=== PATIENT | female | born 1990 | race African-American/Black ===

== ENCOUNTER 2018-01-24 03:02 | Inpatient (IN) | payer MEDICAID ==
[2018-01-24] MEDS ORDERED: DLR(*) 1000 ML BAG 1,000 ML IV PRN (03:04)
[2018-01-24] MEDS ORDERED: LR(*) 1000 ML BAG 1,000 ML IV PRN (03:04)
[2018-01-24] MEDS ORDERED: FAMOTIDINE(*) 20MG/50ML PREMIX 50 ML IVPB PRN (03:04)
[2018-01-24] MEDS ORDERED: OXYTOCIN 30 UNIT/D5LR 500 ML 500 ML IV PRN (03:04)
[2018-01-24] MEDS ORDERED: LIDOCAINE 1% LOCAL 300 MG/30ML INJ PRN (03:05)
[2018-01-24] MEDS ORDERED: fentaNYL CITR 100 MCG/2 ML AMP IVP PRN (03:05)
[2018-01-24] MEDS ORDERED: METOCLOPRAMIDE 10 MG/2 ML SDV IVP PRN (03:05)
[2018-01-24] MEDS ORDERED: cefOXitin/DEX(*) 2GM/50ML PREM 50 ML IVPB PRN (03:05)
[2018-01-24 04:20] LABS: PLATELET COUNT, AUTOMATED 201 K/uL (150-450)
[2018-01-24] MEDS ORDERED: LIDOCAINE 1% LOCAL 300 MG/30ML INJ ONE (08:15)
[2018-01-24] MEDS ORDERED: cefOXitin/DEX(*) 2GM/50ML PREM 50 ML IVPB ONE (08:15)
[2018-01-24] MEDS ORDERED: BUPIV/EPI 0.25% 1:200,000 50ML INFIL ONE (08:20)
[2018-01-24] MEDS ORDERED: HYDROCORTISONE 2.5% CR 30GM TB PR PRN (09:05)
[2018-01-24] MEDS ORDERED: BENZOCAINE 20% 60 ML BTL TP PRN (09:05)
[2018-01-24] MEDS ORDERED: MAGNESIUM HYDROXIDE* 30ML UDCP PO PRN (09:05)
[2018-01-24] MEDS ORDERED: GLYCERIN/WITCH HAZEL LEAF 1 PK TOP PRN (09:05)
[2018-01-24] MEDS ORDERED: LANOLIN OINT 7 GM TUBE TP PRN (09:05)
[2018-01-24] MEDS ORDERED: ACETAMINOPHEN 325 MG TAB PO PRN (09:05)
[2018-01-24] MEDS ORDERED: INFLUENZA VIRUS VAC 0.5 ML SYR IM ONLY ONE (09:05)
[2018-01-24] MEDS ORDERED: HYDROmorphone HCL 2 MG TAB PO PRN (09:05)
--- NOTE | 2018-01-24 09:08 | History & Physical ---
History of Present Illness Age of Patient: 27 : 1 Para or TPAL: 0 EDC per LMP: Jan 18, 2018 Estimated Gestational Age: 40.6 Chief Complaint contractions History of Present Illness The patient is a 27 year old 1 para 0 admitted at 40 6/7 weeks estimated gestational age with an estimated date of delivery01/18/18 . Patient is admitted with complaint of contractions . No vaginal bleeding. Good movement and regular contractions. She was evaluated for active labor. She had an uncomplicated course. Her record was reviewed. History Allergies: Coded Allergies: No Known Drug Allergies (Unverified , 01/24/18) Exam General Exam Cardiovascular: Regular Rate and Rhythm Respiratory: Clear to Auscultation Abdomen: Gravid - Non-Tender Extremities: No Edema Cervical Dialation: 10 Presentation: Vertex Uterine Contractions(Q min): 3 Uterine Contraction Strength: Strong Fetus Heart Tones: 120 Heart Tone Variabilty: Moderate FHT Decelerations: Variable FHT Category: II Medical Decision Making Data Points Result Diagram: 01/24/18 0402 01/24/18 0402 Assessment and Plan Problems: (1) Active labor at term Assessment & Plan: arrived in active labor, amnisure positive progressed to complete pushing, anticipate vaginal delivery Copies to: LANETTE CELESTIN MD ; LANETTE CELESTIN MD Jan 24, 2018 09:07
--- NOTE | 2018-01-24 09:13 | OB Delivery Note ---
Delivery Note Vaginal Delivery Type: Spont. Vaginal Delivery Delivery Date: Jan 24, 2018 Delivery Time: 07:43 Estimated Gestational Age(wks): 40 6/7 Delivery Anesthesia: Local Sex: Male Infant Weight (gms): [address] Apgars: 1 Minute (8), 5 Minute (9) Repair Needed: Laceration, Vaginal, Perineal, 4th Degree Estimated Blood Loss: 400 Delivery Complications: Nuchal Cord Notes: ARRIVED IN ACTIVE LABOR, HAD SROM. PROGRESSED TO COMPLETE. PUSHED EFFECTIVELY AND DELIVERED OVER MIDLINE LACERATION, NUCHAL CORD DELIVERED OVER HEAD AND REMAINDER OF INFANT DELIVERED WITH EASE. SPONTANEOUS CRY AND MOVEMENT OF ALL 4 EXTREMITIES. 4-0 VICRYL USED TO REPAIR ANAL MUCOSA IN SUBCUTICULAR FASHION WITH SAME SUTURE USED WITH INTERRUPTED SUTURE OVER WOUND IN MUSCULARIS LAYER. 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
[2018-01-24] MEDS ORDERED: DOCU240C67 PO (09:14)
[2018-01-24] MEDS ORDERED: IBUP800T37 PO (09:14)
[2018-01-24] MEDS ORDERED: HYDR2TAB4 PO (09:14)
--- NOTE | 2018-01-24 09:15 | OB/GYN Discharge Summary ---
LANETTE CELESTIN MD 01/24/1815: Discharge Summary Reason for Hosp/Final Diag: (1) Active labor at term Status: Resolved (2) care following vaginal delivery Hospital Course & Plan: VAGINAL DELIVERY ON DAY 1, Pain controlled, Tolerating diet and activity. Baby . Normal lochia. Result Diagram: 01/24/1840101/24/18401 Condition: Improved Discharge: Home, Self Jail Meds Active Scripts Magnesium Hydroxide (MILK OF MAGNESIA) 400 Mg/5 Ml Oral.susp, 15 ML PO BID for 14 Days, BOTTLE Prov:TATIANA CANTOR MD 01/26/18 [Lanolin Oint 7 Gm Tube] 7 GM OINT No Conflict Check, 0 GM TP PRN PRN for DISCOMFORT FOR NURSING MOTHERS, TUBE Prov:TATIANA CANTOR MD 01/26/18 Vit#96/Ferrous Fum/Fa ( TABLET) 1 Each Tablet, 1 EACH PO DAILY, #90 TAB 3 Refills Prov:TATIANA CANTOR MD 01/26/18 Ibuprofen (IBUPROFEN) 800 Mg Tablet, 800 MG PO Q8H@0200,1000,1800 for 14 Days, TAB Prov:TATIANA CANTOR MD 01/26/18 Hydrocortisone (PROCTOCREAM-HC) 30 Gm Cream..g., 0 GM NH BID PRN for HEMORRHOIDS for 10 Days, TUBE Prov:TATIANA CANTOR MD 01/26/18 Glycerin/[place] [place] (PREPARATION H) 1 Pkg Pad, 0 PKG TOP PRN PRN for PAIN for 10 Days, PAD Prov:TATIANA CANTOR MD 01/26/18 Docusate Calcium (DOCUSATE CALCIUM) 240 Mg Capsule, 240 MG PO BID for 14 Days, #28 CAPSULE Prov:TATIANA CANTOR MD 01/26/18 [Benzocaine 20% 60 Ml Btl] 60 ML AERS No Conflict Check, 0 ML TP PRN PRN for PAIN Prov:TATIANA CANTOR MD 01/26/18 Ibuprofen (IBUPROFEN) 800 Mg Tablet, 1 TAB PO Q8H, #30 TAB 0 Refills Take with food every 8 hours. Prov:LANETTE CELESTIN MD 01/24/18 Hydromorphone Hcl (HYDROMORPHONE HCL) 2 Mg Tablet, 2 MG PO Q4H for PAIN, #20 TAB 0 Refills Prov:LANETTE CELESTIN MD 01/24/18 Docusate Calcium (DOCUSATE CALCIUM) 240 Mg Capsule, 1 CAP PO BID, #30 CAPSULE 0 Refills Prov:LANETTE CELESTIN MD 01/24/18 [facility] [phone], Dr. Ashby [phone] Follow up in: 6 wks PP or PO, 5-7 days Discharge Diet: As Tolerates Discharge Activity: Pelvic Rest Copies to: LANETTE CELESTIN MD ; TATIANA CANTOR MD 01/26/18 1019: Discharge Summary Reason for Hosp/Final Diag: (1) care following vaginal delivery Hospital Course & Plan: After vaginal delivery at term, complicated by a fourth degree perineal laceration, which was repaired, she had no complications. Her acivities and diet were rapidly advanced. She was discharged home about 48 hours after delivery, in good condition. (2) Fourth degree laceration of perineum, delivered, current hospitalization Hospital Course & Plan: After repair of her fourth degree perineal laceration, she had no further complications. Her perineal pain decreased to the point that she used only Ibuprofen for pain. She had a bowel movement without problem before discharge. Result Diagram: 01/24/18 0402 01/24/18 040 Condition: Improved Discharge: Home, Self Jail Meds Active Scripts Magnesium Hydroxide (MILK OF MAGNESIA) 400 Mg/5 Ml Oral.susp, 15 ML PO BID for 14 Days, BOTTLE Prov:TATIANA CANTOR MD 01/26/18 [Lanolin Oint 7 Gm Tube] 7 GM OINT No Conflict Check, 0 GM TP PRN PRN for DISCOMFORT FOR NURSING MOTHERS, TUBE Prov:TATIANA CANTOR MD 01/26/18 Vit#96/Ferrous Fum/Fa ( TABLET) 1 Each Tablet, 1 EACH PO DAILY, #90 TAB 3 Refills Prov:TATIANA CANTOR MD 01/26/18 Ibuprofen (IBUPROFEN) 800 Mg Tablet, 800 MG PO Q8H@0200,1000,1800 for 14 Days, TAB Prov:TATIANA CANTOR MD 01/26/18 Hydrocortisone (PROCTOCREAM-HC) 30 Gm Cream..g., 0 GM NH BID PRN for HEMORRHOIDS for 10 Days, TUBE Prov:TATIANA CANTOR MD 01/26/18 Glycerin/[place] (PREPARATION H) 1 Pkg Pad, 0 PKG TOP PRN PRN for PAIN for 10 Days, PAD Prov:TATIANA CANTOR MD 01/26/18 Docusate Calcium (DOCUSATE CALCIUM) 240 Mg Capsule, 240 MG PO BID for 14 Days, #28 CAPSULE Prov:TATIANA CANTOR MD 01/26/18 [Benzocaine 20% 60 Ml Btl] 60 ML AERS No Conflict Check, 0 ML TP PRN PRN for PAIN Prov:TATIANA CANTOR MD 01/26/18 Ibuprofen (IBUPROFEN) 800 Mg Tablet, 1 TAB PO Q8H, #30 TAB 0 Refills Take with food every 8 hours. Prov:LANETTE CELESTIN MD 01/24/18 Hydromorphone Hcl (HYDROMORPHONE HCL) 2 Mg Tablet, 2 MG PO Q4H for PAIN, #20 TAB 0 Refills Prov:LANETTE CELESTIN MD 01/24/18 Docusate Calcium (DOCUSATE CALCIUM) 240 Mg Capsule, 1 CAP PO BID, #30 CAPSULE 0 Refills Prov:LANETTE CELESTIN MD 01/24/18 [facility] [phone] Follow up in: 5-7 days Discharge Diet: As Tolerates Discharge Activity: As Tolerates Special Instructions: Discussed bowel regimen and stool softeners for discharge for the first 10-14 days. Copies to: LANETTE CELESTIN MD ; LANETTE CELESTIN MD Jan 24, 2018 09:15 TATIANA CANTOR MD Jan 26, 2018 10:19
[2018-01-24] MEDS: IBUPROFEN 800 MG TAB PO SCH ×2 (10:05→17:46)
[2018-01-24 10:11] VITALS: BP 121/75
[2018-01-24 15:06] VITALS: BP 121/78
[2018-01-24 19:25] VITALS: BP 122/68
[2018-01-24] MEDS: DOCUSATE CALCIUM 240 MG CAP PO SCH (20:30)
[2018-01-24 23:15] VITALS: BP 118/70
[2018-01-25] MEDS: IBUPROFEN 800 MG TAB PO SCH ×3 (01:36→18:20)
[2018-01-25 03:13] VITALS: BP 108/65
[2018-01-25 07:43] VITALS: BP 126/73
[2018-01-25] MEDS: DOCUSATE CALCIUM 240 MG CAP PO SCH ×2 (08:31→20:34)
[2018-01-25] MEDS: MULTIVITAMINS (PRENATAL) TAB PO SCH (08:31)
[2018-01-25] MEDS ORDERED: MAGNESIUM HYDROXIDE* 30ML UDCP PO SCH (09:00)
--- NOTE | 2018-01-25 09:06 | OB/GYN Progress Note ---
OB Subjective Progress Notes Subjective Feeling OK, but still painful perineum. Ambulating and voiding well. Mild- moderate lochia, decreasing. No b.m. yet. Baby doing well. OB Objective Physical Exam Vital Signs Date Time Temp Pulse Resp B/P (MAP) Pulse Ox O2 Delivery O2 Flow Rate FiO2 01/25/18 07:43 98.2 91 16 126/73 (90) 94 Room Air Intake and Output 01/25/18 06:59 Intake Total 400 ml Output Total 650 ml Balance -250 ml Intake Oral 400 ml Output Urine Total 650 ml # Voids 4 General Appearance: Alert/Awake/No Acute Distress Cardiovascular: Regular Rate and Rhythm Respiratory: No Respiratory Distress, Clear to Auscultation Abdomen: Soft, Non-Tender, Non-Distended, Bowel Sounds Present, Fundus Firm (at U) Extremities: No Cyanosis,Clubbing or Edema Psychological: Alert & Oriented X3, Appropriate Mood & Affect Result Diagram: 01/25/18 0613 01/24/18 0402 Assessment and Plan Problems: (1) care following vaginal delivery Assessment & Plan: Doing well, but still painful perineum from 4th degree laceration. Discharge home tomorrow or later today. (2) Fourth degree laceration of perineum, delivered, current hospitalization Assessment & Plan: Will start scheduled MOM. Probably discharge home tomorrow, or possibly later today. (3) Active labor at term Status: Resolved TATIANA CANTOR MD Jan 25, 2018 09:06
[2018-01-25 11:05] VITALS: BP 116/64
[2018-01-25 16:30] VITALS: BP 117/74
[2018-01-25 20:20] VITALS: BP 112/68
[2018-01-25] MEDS: MAGNESIUM HYDROXIDE* 30ML UDCP PO SCH (20:34)
[2018-01-26] VITALS: BP 118/76
[2018-01-26] MEDS: IBUPROFEN 800 MG TAB PO SCH ×2 (02:07→10:15)
[2018-01-26 04:16] VITALS: BP 124/78
[2018-01-26 08:15] VITALS: BP 122/80
[2018-01-26] MEDS ORDERED: DIPHTH/TETANUS/ACEL. PERTUSSIS IM ONLY ONE (09:00)
[2018-01-26] MEDS: MULTIVITAMINS (PRENATAL) TAB PO SCH (09:05)
[2018-01-26] MEDS: DOCUSATE CALCIUM 240 MG CAP PO SCH (09:05)
[2018-01-26] MEDS: MAGNESIUM HYDROXIDE* 30ML UDCP PO SCH (09:05)
[2018-01-26] MEDS ORDERED: MEASLES,MUMP,RUBELLA VAC 0.5ML SUBQ ONE (09:05)
--- NOTE | 2018-01-26 10:02 | OB/GYN Progress Note ---
OB Subjective Progress Notes Subjective Feeling fairly well. Mild lochia. Perineal pain stable, 0-1/10 at rest, up to 3/10 with activity. Had a b.m. this morning without problem. Ambulating better and voiding well. Baby doing well, has been under bili lights, but will be able to be discharged home later today. OB Objective Physical Exam Vital Signs Date Time Temp Pulse Resp B/P (MAP) Pulse Ox O2 Delivery O2 Flow Rate FiO2 01/26/18 04:16 98.1 88 16 124/78 (93) 98 Room Air Intake and Output 01/26/18 06:59 Intake Total 480 ml Balance 480 ml Intake Oral 480 ml # Voids 1 General Appearance: Alert/Awake/No Acute Distress Cardiovascular: Regular Rate and Rhythm Respiratory: No Respiratory Distress, Clear to Auscultation Abdomen: Soft, Non-Tender, Non-Distended, Bowel Sounds Present, Fundus Firm (at U) Extremities: No Cyanosis,Clubbing or Edema; No Tender Calves Psychological: Alert & Oriented X3, Appropriate Mood & Affect Result Diagram: 01/25/18 0613 01/24/18 0402 Assessment and Plan Problems: (1) care following vaginal delivery Assessment & Plan: Doing well , ready for discharge. (2) Fourth degree laceration of perineum, delivered, current hospitalization Assessment & Plan: Doing well, decreasing perineal pain, and had a b.m. without problem. (3) Active labor at term Status: Resolved TATIANA CANTOR MD Jan 26, 2018 10:02
[2018-01-26] MEDS ORDERED: Benzocaine 60 ML TP (10:10)
[2018-01-26] MEDS ORDERED: PREN1TAB29 PO (10:10)
[2018-01-26] MEDS ORDERED: TUCKS TOP (10:10)
[2018-01-26] MEDS ORDERED: DOCU240C67 PO ×2 (10:10→11:19)
[2018-01-26] MEDS ORDERED: IBUP800T37 PO ×2 (10:10→11:19)
[2018-01-26] MEDS ORDERED: Lanolin TP (10:10)
[2018-01-26] MEDS ORDERED: ANUHC30T PR (10:10)
[2018-01-26] MEDS ORDERED: MOM PO (10:10)
[2018-01-26] MEDS ORDERED: HYDR2TAB4 PO (11:19)
== END 2018-01-26 17:00 | disposition home or self-care (01) | DRG 775 ==
LOC: OBSVTOIN 03:02 → UNDOADMOB 03:02 → OB 03:02 → INTOOBSV 03:02
PROVIDERS: ADMIT Obstetrics & Gynecology; ATTEND Obstetrics & Gynecology
PROC: 10E0XZZ Delivery of Products of Conception, External Approach (ICD-10-PCS; principal; 2018-01-24)
PROC: 0DQP0ZZ Repair Rectum, Open Approach (ICD-10-PCS; 2018-01-24)
DX: O69.81X0 Labor and delivery complicated by cord around neck, without compression, not applicable or unspecified (principal); O70.3 Fourth degree perineal laceration during delivery; Z3A.40 40 weeks gestation of pregnancy; Z37.0 Single live birth
CPT/HCPCS: 36415; 82040; 82247; 82310; 82374; 82435; 82565; 82947; 83615; 84075; 84112; 84132; 84155; 84295; 84450; 84460; 84520; 84550; 85025; 85027; 86850; 86900; 86901; J0694; J2001